=== PATIENT | female | born 1930 | race Two or more races ===

== ENCOUNTER 2017-12-12 10:56 | Outpatient (CLI) | payer OTHER ==
[~2017-12-12 10:56] MED LIST: BACTROBAN OINT22 GM TP; CATAFLAM50 MG PO; LIPITOR40 MG PO; RESTORIL30 MG PO; ZOLOFT50 MG PO
== END 2017-12-12 11:12 | disposition home or self-care (01) ==
LOC: RAD 10:56
DX: J98.8 Other specified respiratory disorders (principal); F03.90 Unspecified dementia, unspecified severity, without behavioral disturbance, psychotic disturbance, mood disturbance, and anxiety; R41.82 Altered mental status, unspecified
CPT/HCPCS: 70460; 71046; Q9965

== ENCOUNTER 2018-09-06 13:59 | Emergency (ER) | payer OTHER ==
[~2018-09-06] VITALS: Ht 160 cm; Wt 54.9 kg
[2018-09-06] MEDS ORDERED: CEFDINIR300 MG (14:41)
== END 2018-09-06 17:17 | disposition home or self-care (01) ==
LOC: ER 13:59
DX: F03.90 Unspecified dementia, unspecified severity, without behavioral disturbance, psychotic disturbance, mood disturbance, and anxiety (principal)

== ENCOUNTER 2018-09-29 07:27 | Emergency (ER) | payer OTHER ==
[~2018-09-29] VITALS: Ht 160 cm; Wt 55.3 kg
[~2018-09-29 07:27] MED LIST changes: +CEFDINIR300 MG
[2018-09-29] MEDS ORDERED: ZYPREXA5 MG (07:46)
== END 2018-09-29 10:50 | disposition home or self-care (01) ==
LOC: ER 07:27
DX: F03.90 Unspecified dementia, unspecified severity, without behavioral disturbance, psychotic disturbance, mood disturbance, and anxiety (principal); R41.0 Disorientation, unspecified

== ENCOUNTER 2018-12-25 11:27 | Emergency (ER) | payer OTHER ==
[~2018-12-25] VITALS: Ht 152.4 cm; Wt 52.2 kg
[~2018-12-25 11:27] MED LIST changes: +ZYPREXA5 MG
== END 2018-12-25 16:50 | disposition home or self-care (01) ==
LOC: ER 11:27
DX: S00.03XA Contusion of scalp, initial encounter (principal); S70.02XA Contusion of left hip, initial encounter; S70.01XA Contusion of right hip, initial encounter; G30.8 Other Alzheimer's disease; F02.80 Dementia in other diseases classified elsewhere, unspecified severity, without behavioral disturbance, psychotic disturbance, mood disturbance, and anxiety; W18.09XA Striking against other object with subsequent fall, initial encounter; Y93.89 Activity, other specified; Y92.89 Other specified places as the place of occurrence of the external cause; Y99.8 Other external cause status

== ENCOUNTER 2019-01-07 18:48 | Emergency (ER) | payer OTHER ==
[~2019-01-07] VITALS: Ht 152.4 cm; Wt 56.7 kg
== END 2019-01-07 19:56 | disposition home or self-care (01) ==
LOC: ER 18:48
DX: S01.121A Laceration with foreign body of right eyelid and periocular area, initial encounter (principal); W45.8XXA Other foreign body or object entering through skin, initial encounter; Y93.89 Activity, other specified; Y92.018 Other place in single-family (private) house as the place of occurrence of the external cause; Y99.8 Other external cause status